=== PATIENT | female | born 1980 | race Caucasian/White ===

== ENCOUNTER 2017-05-19 08:47 | Inpatient (IN) | payer OTHER ==
[2017-05-19 13:00] VITALS: BP 92/52
[2017-05-19 16:23] LABS: ALBUMIN 2.4 g/dL (3.4-5.0); CALCIUM 8.2 mg/dL (8.5-10.1); CREATININE 1.4 mg/dL (0.6-1.0); POTASSIUM 3.5 mmol/L (3.5-5.1); TOTAL BILIRUBIN 0.2 mg/dL (<0.1-1.0); TOTAL PROTEIN 5.4 g/dL (6.4-8.2)
[2017-05-19 16:33] VITALS: BP 103/61
[2017-05-19 20:35] VITALS: BP 107/59
[2017-05-20] VITALS (9 sets, daily range): BP systolic 107–159; BP diastolic 57–104
[2017-05-20 03:56] LABS: HEMOGLOBIN 10.3 gm/dL (12.0-15.0); MCH 29.6 pg (26.0-34.0); MCHC 33.3 g/dL (28.0-37.0); MCV 88.8 fL (80.0-100.0); PLATELET COUNT 134 thou/uL (150-400); RBC 3.49 mil/uL (4.20-5.00); RDW 15.1 % (10.5-14.5); WBC 28.7 thou/uL (4.0-11.0)
[2017-05-20 04:03] LABS: CALCIUM 8.1 mg/dL (8.5-10.1); CREATININE 1.4 mg/dL (0.6-1.0); MAGNESIUM 1.4 mg/dL (1.8-2.4); POTASSIUM 3.9 mmol/L (3.5-5.1)
[2017-05-20 06:46] LABS: ATYPICAL LYMPHS 1 %
[2017-05-21 00:33] VITALS: BP 148/95
[2017-05-21 05:29] VITALS: BP 160/78
[2017-05-21 08:27] VITALS: BP 171/92
[2017-05-21 09:16] LABS: ABSOLUTE NEUTROPHILS 14.5 thou/uL (1.4-8.2); BASOPHILS 0.2 % (0.0-2.0); EOSINOPHILS 0.4 % (0.0-3.0); HEMATOCRIT 29.3 % (37.0-47.0); HEMOGLOBIN 9.9 gm/dL (12.0-15.0); LYMPHOCYTES 7.8 % (24.0-44.0); MCH 29.4 pg (26.0-34.0); MCHC 33.7 g/dL (28.0-37.0); MCV 87.1 fL (80.0-100.0); MONOCYTES 4.8 % (1.0-8.0); PLATELET COUNT 116 thou/uL (150-400); POLYS 86.8 % (36.0-66.0); RBC 3.36 mil/uL (4.20-5.00); RDW 14.7 % (10.5-14.5); WBC 16.6 thou/uL (4.0-11.0)
[2017-05-21 09:24] LABS: CALCIUM 8.1 mg/dL (8.5-10.1); POTASSIUM 3.3 mmol/L (3.5-5.1)
[2017-05-21 15:52] VITALS: BP 156/98
[2017-05-21 18:52] LABS: URINE BILIRUBIN NEGATIVE (Negative); URINE BLOOD 3+ (Negative); URINE COLOR YELLOW; URINE GLUCOSE-RANDOM* NEGATIVE (Negative); URINE KETONES 1+ (Negative); URINE NITRITE-REFLEX NEGATIVE (Negative); URINE PROTEIN (DIPSTICK) 2+ (Negative); URINE UROBILINOGEN 0.2 E.U./dl (0.2-1.0)
[2017-05-21 18:58] LABS: URINE LEUKOCYTES-REFLEX 1+ (Negative)
[2017-05-21 18:59] LABS: URINE CLARITY SL HAZY
[2017-05-21 19:08] LABS: SQUAMOUS 0-3 Few /LPF (0-3); URINE RBC >20 Many /HPF (0-2)
[2017-05-21 19:09] LABS: CASTS None Seen /LPF (None Seen); CRYSTALS None Seen /LPF (None Seen)
[2017-05-21 19:25] VITALS: BP 165/90
[2017-05-22 03:40] VITALS: BP 142/82
[2017-05-22] MEDS ORDERED: CELEXA40 MG PO (05:28)
[2017-05-22] MEDS ORDERED: ABILIFY 2 MG2 M1 PO (05:29)
[2017-05-22 06:33] LABS: HEMATOCRIT 27.2 % (37.0-47.0); HEMOGLOBIN 9.3 gm/dL (12.0-15.0); MCH 29.6 pg (26.0-34.0); RBC 3.13 mil/uL (4.20-5.00); WBC 12.2 thou/uL (4.0-11.0)
[2017-05-22 06:49] LABS: CALCIUM 7.5 mg/dL (8.5-10.1); CREATININE 0.8 mg/dL (0.6-1.0); POTASSIUM 3.2 mmol/L (3.5-5.1)
[2017-05-22 10:17] VITALS: BP 129/83
[2017-05-22] MEDS ORDERED: FLOMAX0.4 MG PO (10:28)
[2017-05-22] MEDS ORDERED: LEVAQUIN 500 M500 M2 PO (10:31)
[2017-05-22 13:16] VITALS: BP 129/83
== END 2017-05-22 16:15 | disposition home or self-care (01) | DRG 694 ==
LOC: EROBS 08:47 → TBA 08:49 → 4S 10:54 → EROBS 10:54 → 4S 14:04
PROVIDERS: Hospitalist; Nurse Practitioner
PROC: 0T768DZ Dilation of Right Ureter with Intraluminal Device, Via Natural or Artificial Opening Endoscopic (ICD-10-PCS; principal; 2017-05-20)
DX: N13.2 Hydronephrosis with renal and ureteral calculous obstruction (principal); N17.9 Acute kidney failure, unspecified; F32.9 Major depressive disorder, single episode, unspecified; F17.210 Nicotine dependence, cigarettes, uncomplicated; E87.6 Hypokalemia; I95.9 Hypotension, unspecified; D72.829 Elevated white blood cell count, unspecified; N12 Tubulo-interstitial nephritis, not specified as acute or chronic; Z88.1 Allergy status to other antibiotic agents; Z82.49 Family history of ischemic heart disease and other diseases of the circulatory system; Z80.9 Family history of malignant neoplasm, unspecified; Z83.3 Family history of diabetes mellitus
CPT/HCPCS: 10102; 50010; 50101; 50214; 50478; 51767; 56674; 62110; 62900; 70005